=== PATIENT | female | born 1955 | race Caucasian/White ===

== ENCOUNTER 2018-07-31 06:01 | Emergency (ER) | payer OTHER ==
--- NOTE | 2018-07-31 06:12 | Emergency Department Record ---
History of Present Illness - General Chief complaint: Lower Extremity Pain Stated complaint: TOE INJURY Time Seen by Provider: 07/31/18 06:05 Source: Patient Mode of Arrival: Ambulatory Limitations: No limitations - History of Present Illness Initial comments: 62 yo female presents to ED for evaluation following injury to the right little toe. Patient reports that she accidentally kicked her foot toward her cat and struck the wall with her toe. Patient denies other injury on examination, denies health problems other than HTN. Patient is concerned about possible dislocation. MD Complaint: Extremity pain Onset/Timin -: Hour(s) Location: Right, Foot History of Same: No -: Yes Arthralgia Quality: Aching Consistency: Constant Improves with: Nothing Worsens with: Walking Associated Symptoms: Denies other symptoms - Related Data Home Medications Medication Instructions Recorded Confirmed Last Taken Amlodipine Besylate 3 tab PO DAILY 07/31/18 07/31/18 07/30/18 Clonidine HCl 1 tab PO DAILY 07/31/18 07/31/18 07/30/18 Levalbuterol HCl [Xopenex 2 puff INH ASDIR PRN 07/31/18 07/31/18 Unknown Concentrate] Allergies Allergy/AdvReac Type Severity Reaction Status Date / Time Sulfa (Sulfonamide Allergy HIVES Verified 07/31/18 06:12 Antibiotics) Review of Systems Constitutional: Denies: Chills, Fever, Malaise, Night sweats Eyes: Denies: Eye discharge, Eye pain ENT: Denies: Congestion, Ear pain, Epistaxis Respiratory: Denies: Cough, Dyspnea Cardiovascular: Denies: Chest pain, Dyspnea on exertion Endocrine: Denies: Fatigue, Heat or cold intolerance Gastrointestinal: Denies: Abdominal pain, Nausea, Vomiting Genitourinary: Denies: Incontinence, Retention Musculoskeletal: Reports: Arthralgia. Denies: Back pain, Gout, Joint swelling Skin: Denies: Bruising, Change in color Neurological: Denies: Abnormal gait, Confusion, Seizure Psychiatric: Denies: Anxiety Hematological/Lymphatic: Denies: Anemia, Blood Clots Physical Exam - General General Appearance: Alert, Oriented x3, Cooperative, Mild distress Limitations: No limitations - Head Head exam: Atraumatic, Normocephalic, Normal inspection Head exam detail: negative: Abrasion, Contusion, Winters's sign, General tenderness, Hematoma, Laceration - Eye Eye exam: Normal appearance. negative: Conjunctival injection, Periorbital swelling, Periorbital tenderness, Scleral icterus - ENT Ear exam: negative: Auricular hematoma, Auricular trauma Nasal Exam: negative: Active bleeding, Discharge, Dried blood, Foreign body Mouth exam: negative: Drooling, Laceration, Muffled voice, Tongue elevation - Neck Neck exam: Normal inspection. negative: Meningismus, Tenderness - Respiratory Respiratory exam: Normal lung sounds bilaterally. negative: Rales, Respiratory distress, Rhonchi, Stridor - Cardiovascular Cardiovascular Exam: Regular rate, Normal rhythm, Normal heart sounds - GI/Abdominal GI/Abdominal exam: Soft. negative: Rebound, Rigid, Tenderness - Rectal Rectal exam: Deferred - exam: Deferred - Extremities Extremities exam: Tenderness, Other (TTP over the right little toe, no obvious deformity is present on examination.). negative: Calf tenderness, Pedal edema - Back Back exam: Denies: CVA tenderness (R), CVA tenderness (L) - Neurological Neurological exam: Alert, Normal gait, Oriented X3 - Psychiatric Psychiatric exam: Normal affect, Normal mood - Skin Skin exam: Normal color. negative: Abrasion Type of lesion: negative: abrasion Course - Reevaluation(s) Reevaluation #1: 07/31/18 06:37 Right foot: Non-displaced fracture of the 5th proximal phalanx distally. Patient was updated on her radiograph results, will place in a post-op shoe with podiatric follow-up. Patient is in agreement with the plan of care as discussed. Disposition Disposition: Discharge Clinical Impression: Toe fracture, right Qualifiers: Encounter type: initial encounter Toe: lesser toe Fracture type: closed Phalanx : distal Fracture alignment: nondisplaced Qualified Code(s): S92.534A - Nondisplaced fracture of distal phalanx of right lesser toe(s), initial encounter for closed fracture Disposition: Home, Self-Care Condition: (2) Stable Instructions: Toe Fracture (ED) Additional Instructions: Return to ED if your symptoms worsen or if you have any concerns. Ibuprofen, ice as directed. Post-op shoe. Follow-up with Dr. Gonzalez in 3-5 days as directed. Referrals: FAUSTINO GONZALEZ, [email or web address] [DOCTOR OF PODIATRY MEDICINE] - [facility] [Provider Group] Forms: Patient Portal Access Time of Disposition: 06:40 Quality - Quality Measures Quality Measures: N/A - Blood Pressure Screening Does Patient Have Any of the Following: Active Dx of HTN Blood Pressure Classification: Hypertensive Reading Systolic Measurement: 154 Diastolic Measurement: 90 Screening for High Blood Pressure: Patient Exclusion, Hx of HTN [[id number]]
--- NOTE | 2018-08-03 13:46 | RADIOLOGY REPORT ---
EXAM: TOES, RIGHT HISTORY: PAIN IN FIFTH TOE POST TRAUMA. TECHNIQUE: AP, oblique, and lateral views of the lateral toes are obtained. COMPARISON: None. ENCOUNTER: Initial. FINDINGS: There is a nondisplaced oblique fracture of the distal aspect of the shaft of the fifth proximal phalanx with questionable minimal apex plantar angulation of the fracture fragments. No other fracture is seen, nor is there dislocation. The articular relations are maintained. IMPRESSION: NONDISPLACED, MINIMALLY ANGULATED FRACTURE OF THE FIFTH PROXIMAL PHALANX. JOB NUMBER: [id number] [facility]
== END 2018-07-31 06:48 | disposition home or self-care (01) ==
LOC: ER 06:01
DX: S92.514A Nondisplaced fracture of proximal phalanx of right lesser toe(s), initial encounter for closed fracture (principal); W22.01XA Walked into wall, initial encounter; I10 Essential (primary) hypertension
CPT/HCPCS: 73660; 99283